=== PATIENT | female | born 1985 | race Caucasian/White ===

== ENCOUNTER 2025-02-26 07:25 | Day surgery (SDC) | payer OTHER ==
[~2025-02-26] VITALS: Ht 162.6 cm; Wt 138.3 kg
[~2025-02-26 07:25] MED LIST: GLYCOPYRROLATE INJ 0.2 MG/ML 2 ML VIAL As Ordered ONE; LIDOCAINE 2% 100MG/5ML SDV (FOR ANES.) As Ordered ONE; MIDAZOLAM INJ 2MG/2ML VIAL As Ordered ONE; ONDANSETRON 4MG 2ML VIAL As Ordered ONE; ROCURONIUM BROMIDE 50MG/5ML VIAL As Ordered ONE; SUGAMMADEX SODIUM 500 MG/5 ML VIAL (BRIDION) As Ordered ONE; fentaNYL 100 MCG/2 ML INJECTION As Ordered ONE; propofoL 200 MG/20 ML VIAL As Ordered ONE
[2025-02-26] MEDS ORDERED: LR 1,000 ML IV SCH (08:00)
[2025-02-26] MEDS: AMPICILLIN SOD/SULBACTAM SOD 3 GM in D5W MINI-BAG 100 ML IV ONE (08:50)
[2025-02-26] MEDS: LIDOCAINE 2% W/ EPINEPHRINE 1.7 ML DENTAL INJ As Ordered ONE (09:08)
[2025-02-26] MEDS ORDERED: ACETAMINOPHEN 1000MG/100ML IV BAG As Ordered ONE (09:10)
[2025-02-26] MEDS: CHLORHEXIDINE GLUCONATE 0.12 % 15ML UDC (PERIDEX ORAL RINSE) As Ordered ONE (09:12)
[2025-02-26] MEDS ORDERED: KETOROLAC 30 MG/ML 1ML VIAL As Ordered ONE (09:30)
[2025-02-26] MEDS: BUPivacaine LIPOSOME/PF 266MG 20ML VIAL (13.3MG/ML)(EXPAREL) As Ordered ONE (09:41)
[2025-02-26] MEDS ORDERED: ONDANSETRON 4MG 2ML VIAL IV PRN (10:00)
[2025-02-26] MEDS ORDERED: oxyCODONE 5MG TAB PO PRN (10:00)
[2025-02-26] MEDS ORDERED: fentaNYL 100 MCG/2 ML INJECTION IV PRN (10:00)
[2025-02-26] MEDS ORDERED: MORPHINE 2 MG/ML 1ML VIAL IV PRN (10:00)
[2025-02-26 10:33] VITALS: BP 161/80
[2025-02-26 11:15] VITALS: TEMP 97.2; O2SAT 99
== END 2025-02-26 11:25 | disposition home or self-care (01) ==
LOC: M SDC 07:25
PROVIDERS: ATTEND Dentist
DX: K02.9 Dental caries, unspecified (principal); E66.01 Morbid (severe) obesity due to excess calories; Z68.43 Body mass index [BMI] 50.0-59.9, adult; F40.232 Fear of other medical care
CPT/HCPCS: 88300; D7210; J0131; J0295; J0666; J1100; J1596; J1885; J2250; J2405; J3010